=== PATIENT | male | born 1990 | race Asian ===

== ENCOUNTER 2018-02-01 09:33 | Emergency (ER) | payer OTHER ==
[2018-02-01 11:30] LABS: ADD MAN DIFF? NO
[2018-02-01 11:31] LABS: BASOPHILS % 0.5 % (0.0-2.0); EOSINOPHILS # 0.1 10^3/ul (0.0-0.5); EOSINOPHILS % 0.6 % (0.0-7.0); HEMOGLOBIN 14.9 g/dl (14.0-18.0); LYMPHOCYTES # 3.1 10^3/ul (0.8-2.9); LYMPHOCYTES % 39.7 % (15.0-51.0); MEAN CORPUSCULAR HEMOGLOBIN 28.8 pg (29.0-33.0); MEAN CORPUSCULAR HGB CONC 33.9 g/dl (32.0-37.0); MEAN CORPUSCULAR VOLUME 85.1 fl (82.0-101.0); MEAN PLATELET VOLUME 9.8 fl (7.4-10.4); MONOCYTE # 0.5 10^3/ul (0.3-0.9); MONOCYTES % 6.1 % (0.0-11.0); NEUTROPHIL # 4.2 10^3/ul (1.6-7.5); PLATELET COUNT 263 10^3/UL (140-415); RED BLOOD COUNT 5.17 10^6/ul (4.70-6.10)
[2018-02-01 11:31] LABS: WHITE BLOOD COUNT 7.9 10^3/ul (4.8-10.8)
[2018-02-01 11:36] LABS: ADD UMIC NO; UR ASCORBIC ACID NEGATIVE (NEGATIVE); UR BILIRUBIN (Dip) NEGATIVE (NEGATIVE); UR BLOOD (Dip) NEGATIVE (NEGATIVE); UR CLARITY CLEAR (CLEAR); UR COLOR YELLOW (YELLOW); UR GLUCOSE (Dip) NEGATIVE (NEGATIVE); UR KETONES (Dip) NEGATIVE (NEGATIVE); UR LEUKOCYTE ESTERASE (Dip) NEGATIVE Leu/ul (NEGATIVE); UR NITRITE (Dip) NEGATIVE (NEGATIVE); UR SPECIFIC GRAVITY (Dip) 1.014 (1.003-1.030); UR TOTAL PROTEIN (Dip) NEGATIVE (NEGATIVE); UR UROBILINOGEN (Dip) NEGATIVE (NEGATIVE)
[2018-02-01 11:58] LABS: ALANINE AMINOTRANSFERASE 32 IU/L (13-69); ALBUMIN 5.2 g/dl (3.3-4.9); ALBUMIN/GLOBULIN RATIO 1.15; ALKALINE PHOSPHATASE 105 IU/L (42-121); ANION GAP 14 (5-13); ASPARTATE AMINO TRANSFERASE 26 IU/L (15-46); BILIRUBIN,INDIRECT 0.5 mg/dl (0-1.1); BILIRUBIN,TOTAL 0.5 mg/dl (0.2-1.3); BLOOD UREA NITROGEN 16 mg/dl (7-20); CALCIUM 10.1 mg/dl (8.4-10.2); CARBON DIOXIDE 26 mmol/L (21-31); CHLORIDE 103 mmol/L (97-110); CREATININE 0.76 mg/dl (0.61-1.24); Estimated GFR > 60 mL/min (>60); GLUCOSE 102 mg/dl (70-220); LIPASE 35 U/L (23-300); SODIUM 143 mmol/L (135-144); TOTAL PROTEIN 9.7 g/dl (6.1-8.1)
[2018-02-01 12:10] LABS: B-TYPE NATRIURETIC PEPTIDE 31 PG/ML (0-125); TROPONIN-I < 0.012 ng/ml (0.000-0.120)
== END 2018-02-01 13:06 | disposition home or self-care (01) ==
LOC: FTE 09:33
DX: R07.9 Chest pain, unspecified (principal); K21.9 Gastro-esophageal reflux disease without esophagitis; R00.2 Palpitations
CPT/HCPCS: 36415; 71045; 80053; 81003; 83690; 83880; 84484; 85025; 93005; 99285-25

== ENCOUNTER 2018-06-17 20:44 | Emergency (ER) | payer OTHER ==
[2018-06-18 01:11] LABS: TROPONIN-I < 0.012 ng/ml (0.000-0.120)
== END 2018-06-18 01:46 | disposition home or self-care (01) ==
LOC: FTE 06-18 01:46
DX: R07.9 Chest pain, unspecified (principal)
CPT/HCPCS: 71046; 84484; 93005; 99285-25